=== PATIENT | male | born 1985 | race Two or more races ===

== ENCOUNTER 2020-07-19 19:21 | Inpatient (IN) | payer OTHER ==
[~2020-07-19] VITALS: Ht 177.8 cm; Wt 75.3 kg
[~2020-07-19 19:21] MED LIST: ANTIHISTAMINE; Bactrim Ds Tab1 EACH PO; CEPH250SUA PO; CEPH500 PO; CHLO25 PO; DIAZ5; FAMO20 PO; FAMO40 PO; FEXO60; HYDACE5 PO; HYDACE7.5L PO; LORA10ER; NAPR550 PO; PANT40 PO; PROCODE120 PO; PROM25 PO; RXNAPNA550 PO; SUCR1 PO; SULTRIDS PO; TOBDEXOPSU OS; [UNRECOGNIZED DRUG - OTHER]
[2020-07-19 20:39] LABS: BASOPHILS ABSOLUTE AUTO 0.03 K/mm3 (0.00-0.23); BASOPHILS PERCENT AUTO 1 % (0-2); EOSINOPHILS ABSOLUTE AUTO 0.05 K/mm3 (0.00-0.68); EOSINOPHILS PERCENT AUTO 1 % (0-6); Hematocrit 43.2 % (37.0-53.0); Hemoglobin 14.2 g/dL (13.5-17.5); IMMATURE GRAN ABSOLUTE AUTO 0.01 K/mm3 (0.00-0.10); IMMATURE GRAN PERCENT AUTO 0 % (0-1); LYMPHOCYTES ABSOLUTE AUTO 1.79 K/mm3 (0.84-5.20); LYMPHOCYTES PERCENT AUTO 35 % (21-46); MONOCYTES ABSOLUTE AUTO 0.49 K/mm3 (0.16-1.47); MONOCYTES PERCENT AUTO 10 % (4-13); Mean Corpuscular HGB Conc 32.9 g/dL (31.5-36.5); Mean Corpuscular Volume 88 fL (80-100); Mean Platelet Volume 9.9 fL (9.1-12.4); NEUTROPHILS ABSOLUTE AUTO 2.77 K/mm3 (1.96-9.15); NEUTROPHILS PERCENT AUTO 54 % (41-73); Platelet Count 333 K/mm3 (150-400); RDW Coefficient Variation 12.6 % (11.7-14.2); RDW Standard Deviation 41.1 fL (35.1-46.3); White Blood Cell Count 5.14 K/mm3 (4.00-11.30)
[2020-07-19 20:58] LABS: Alanine Aminotransfer (ALT/SGP 17 U/L (12-78); Albumin, Blood 3.5 g/dL (3.4-5.0); Albumin/Globulin Ratio 1.1 (0.8-1.8); Alk Phos 74 U/L (50-136); Anion Gap 8 mmol/L (6-16); Aspartate Aminotrans (AST/SGOT 16 U/L (12-37); Bilirubin, Total 0.5 mg/dL (0.1-1.0); Blood Urea Nitrogen 19 mg/dL (8-24); Bun/Creatinine Ratio 21.6 (12.0-20.0); CO2, Blood 26 mmol/L (21-32); Calcium, Blood 8.9 mg/dL (8.5-10.1); Chloride, Blood 104 mmol/L (98-108); Creatinine, Blood 0.88 mg/dL (0.60-1.20); Globulin, Blood 3.3 g/dL (2.2-4.0); Glomerular Filtration Rate >60 (60-); Glucose, Blood 116 mg/dL (70-99); Potassium, Blood 3.7 mmol/L (3.5-5.5); Sodium, Blood 138 mmol/L (136-145); Total Protein, Blood 6.8 g/dL (6.4-8.2)
[2020-07-19 23:37] LABS: Influenza A, PCR Negative (NEGATIVE); Influenza B, PCR Negative (NEGATIVE); Resp Syncytial Virus, PCR Negative (NEGATIVE); SARS-Cov-2 (COVID-19) PCR, MMC Negative (NEGATIVE)
--- NOTE | 2020-07-20 08:39 | NUR ---
SUMMARY ADMIT TONIGHT PENDING I/D RLE. P[AIN MEDS EFFECTIVE. IV FLUID INFUSING.
[2020-07-20] MEDS ORDERED: BACTRIM DS TAB1 EAC2 PO (11:59)
[2020-07-20] MEDS ORDERED: HYDR1TAB94 PO (12:02)
[2020-07-20] MEDS ORDERED: ASPIR 8181 M1 PO (12:12)
--- NOTE | 2020-07-20 15:40 | NUR ---
DISCHARGE - LEFT THE FACILITY W/O NOTICE CAME TO PT ROOM AT 1330 TO DISCUSS DISCHARGE INSTRUCTION. ADVISE PT TO FOLLOW UP WITH DR. DIAZ THIS WEEK PER DR. VIRGEN. I MENTIONED THAT DR. DIAZ AND DR. VIRGEN SHARE THE SAME OFFICE. NOTIFIED TO TAKE ASA 81 ONCE DAILY FOR 2 WEEKS TO PREVENT BLOOD CLOT. HAND CARRY PRESCRIPTION WAS GIVEN TO PATIENT UPON DISCHARGE FOR NARCOTICS AND BACTRIM. ADVISE PT NOT TO DRIVE MACHINERY WHEN TAKING NORCO. PT ASVISED NO DRIVING UNTIL CLEARED BY DOCTOR PARAM/ ONLY. I MENTIONED THAT OTHER PROVIDER CANNOT RELEASED HIM TO RETURN TO DRIVING UNLESS SEEN AND EVALUATED FOR RELEASE FROM /. ALSO ADVISE PT ON NON WEIGHT BEARING ON RLE. NEW SPLINT PLACED BY DR. VIRGEN THIS MORNING. PT HAD SPOKEN W/ DR. VIRGEN WITH HIS TREATMENT PLAN AND AGREED TO DC TODAY, TAKE ABX AND NORCO HOME AND F/U IN HIS OFFICE, MARYSOL WAS PRESENT AT BEDSIDE. I ALSO ADDRESSED TO CALL DR. DIAZ'S OFFICE OF ANY WORSENING SX, UNRELIEVE PAIN, AND S/SX OF INFECTION. PT SIGNED THE DISCHARGE PAPER WORK. PT WAS CONCERN ABOUT CRUTCHES, REQUESTING FOR SCRIPT. I ADVISE PT TO GIVE ME A MOMENT TO GET A SCRIPT/VERIFY W/ CHARGE TO GET A SCRIPT FOR CRUTCHES. INSIST TO HAVE A SCRIPT TODAY BECAUSE PT HAS OHP, AND WANTED THE CRUTCHES TO BE COVERED BY INSURANCE VS OUT OF POCKET. I SPOKE W/ X RAY TECHNOLOGIST STUART, CONSULT FOR ADVISE AND OPTION THAT PT MAY HAVE BUT WHEN I CAME BACK IN THE ROOM, PT WAS GONE. PT TOOK THE WALKER FROM THE ROOM AND HIS BELONGINGS. I ATTEMPTED TO CALL THE PATIENT TWICE, AND LEFT A VOICEMAIL TO CALL BACK. I ADDRESS THE ISSUE TO MY CHARGE NURSE, STUART AND NURSING FOOD MOBILE DRIVER WAS NOTIFIED.
== END 2020-07-20 13:50 | disposition home or self-care (01) | DRG 563 ==
LOC: ER 19:21 → SURS 20:56
PROVIDERS: Emergency Medicine; ADMIT Orthopaedic Surgery
DX: S82.401A Unspecified fracture of shaft of right fibula, initial encounter for closed fracture (principal); Z20.828 Contact with and (suspected) exposure to other viral communicable diseases; W20.8XXA Other cause of strike by thrown, projected or falling object, initial encounter; Y92.9 Unspecified place or not applicable
CPT/HCPCS: 0241U; 29515; 36415; 73590; 80053; 85025; 96365-59; 96375-59; 99284-25; A9270-GY; J0690; J1170; J7120

== ENCOUNTER 2021-09-06 20:15 | Emergency (ER) | payer OTHER ==
[~2021-09-06] VITALS: Ht 175.3 cm; Wt 74.8 kg
[~2021-09-06 20:15] MED LIST changes: +ASPIR 8181 M1 PO; +BACTRIM DS TAB1 EAC2 PO; +HYDR1TAB94 PO
[2021-09-06] MEDS ORDERED: Bactrim Ds Tab1 EACH PO (22:30)
[2021-09-06] MEDS ORDERED: Keflex500 MG PO (22:30)
== END 2021-09-06 22:40 | disposition home or self-care (01) ==
LOC: ER 20:15
DX: L02.413 Cutaneous abscess of right upper limb (principal); Z88.0 Allergy status to penicillin; F17.200 Nicotine dependence, unspecified, uncomplicated
CPT/HCPCS: 10061; 96372; 99283; A9270; J1885

== ENCOUNTER 2024-11-02 23:33 | Observation (INO) | payer OTHER ==
[~2024-11-02] VITALS: Ht 177.8 cm; Wt 72.6 kg
[~2024-11-02 23:33] MED LIST changes: +Keflex500 MG PO
[2024-11-03 00:10] LABS: BASOPHILS ABSOLUTE AUTO 0.03 K/mm3 (0.00-0.23); BASOPHILS PERCENT AUTO 1 % (0-2); EOSINOPHILS ABSOLUTE AUTO 0.06 K/mm3 (0.00-0.68); EOSINOPHILS PERCENT AUTO 1 % (0-6); Hematocrit 39.8 % (37.0-53.0); Hemoglobin 13.7 g/dL (13.5-17.5); IMMATURE GRAN ABSOLUTE AUTO 0.03 K/mm3 (0.00-0.10); IMMATURE GRAN PERCENT AUTO 1 % (0-1); LYMPHOCYTES ABSOLUTE AUTO 1.83 K/mm3 (0.84-5.20); LYMPHOCYTES PERCENT AUTO 42 % (21-46); MONOCYTES ABSOLUTE AUTO 0.51 K/mm3 (0.16-1.47); MONOCYTES PERCENT AUTO 12 % (4-13); Mean Corpuscular HGB 29.8 pg (26.0-34.0); Mean Corpuscular HGB Conc 34.4 g/dL (31.5-36.5); Mean Corpuscular Volume 87 fL (80-100); Mean Platelet Volume 11.1 fL (9.1-12.4); NEUTROPHILS ABSOLUTE AUTO 1.92 K/mm3 (1.96-9.15); NEUTROPHILS PERCENT AUTO 44 % (41-73); Platelet Count 204 K/mm3 (150-400); RDW Coefficient Variation 12.7 % (11.7-14.2); RDW Standard Deviation 39.9 fL (35.1-46.3); White Blood Cell Count 4.38 K/mm3 (4.00-11.30)
[2024-11-03] MEDS ORDERED: ACTIVATED CHARCOAL/SORBITOL 25 GM/120 ML BTL PO ONE (00:20)
[2024-11-03 00:22] LABS: Alanine Aminotransfer (ALT/SGP 44 U/L (12-78); Albumin, Blood 3.9 g/dL (3.4-5.0); Albumin/Globulin Ratio 1.3 (0.8-1.8); Alk Phos 60 U/L (50-136); Anion Gap 8 mmol/L (3-11); Aspartate Aminotrans (AST/SGOT 36 U/L (12-37); Bilirubin, Total 0.4 mg/dL (0.1-1.0); Blood Urea Nitrogen 17 mg/dL (8-24); Bun/Creatinine Ratio 20.8 (12.0-20.0); CO2, Blood 29 mmol/L (21-32); Calcium, Blood 8.6 mg/dL (8.5-10.1); Chloride, Blood 104 mmol/L (98-108); Creatinine, Blood 0.82 mg/dL (0.60-1.20); Ethanol (Alcohol), Blood, Med <3 mg/dL; Globulin, Blood 3.1 g/dL (2.2-4.0); Glomerular Filtration Rate 115 (60-); Glucose, Blood 90 mg/dL (70-99); Potassium, Blood 4.1 mmol/L (3.5-5.5); Sodium, Blood 137 mmol/L (136-145)
[2024-11-03] MEDS ORDERED: Naloxone HCl 0.4MG / ML 1ML Vial IV ONE (00:45)
[2024-11-03] MEDS ORDERED: Ondansetron 4 MG TAB PO PRN (01:55)
[2024-11-03] MEDS ORDERED: Naloxone HCl 0.4MG / ML 1ML Vial IV PRN (01:55)
[2024-11-03] MEDS ORDERED: Acetaminophen 325 MG TABLET PO PRN (01:55)
[2024-11-03] MEDS ORDERED: Lactated Ringer's 1,000 ML IV ONE (02:00)
[2024-11-03] MEDS ORDERED: FLU VACC TS2024-25(6MOS UP)/PF 45 MCG/0.5 ML SYRINGE IM ONE (02:00)
[2024-11-03 03:32] LABS: U Amphetamine Screen DETECTED; U Barbituate Screen Not Detected; U Benzodiazapine Screen Not Detected; U Buprenorphine Screen Not Detected; U Cannabinoids Screen Not Detected; U Cocaine Screen Not Detected; U Methadone Screen Not Detected; U Methamphetamine Screen DETECTED; U Opiates Screen Not Detected; U Oxycodone Screen Not Detected; U Phencyclidine Screen Not Detected
[2024-11-03 05:09] LABS: BASOPHILS ABSOLUTE AUTO 0.02 K/mm3 (0.00-0.23); BASOPHILS PERCENT AUTO 0 % (0-2); EOSINOPHILS ABSOLUTE AUTO 0.02 K/mm3 (0.00-0.68); EOSINOPHILS PERCENT AUTO 0 % (0-6); Hematocrit 36.8 % (37.0-53.0); Hemoglobin 12.7 g/dL (13.5-17.5); IMMATURE GRAN ABSOLUTE AUTO 0.01 K/mm3 (0.00-0.10); IMMATURE GRAN PERCENT AUTO 0 % (0-1); LYMPHOCYTES ABSOLUTE AUTO 1.95 K/mm3 (0.84-5.20); LYMPHOCYTES PERCENT AUTO 32 % (21-46); MONOCYTES ABSOLUTE AUTO 0.45 K/mm3 (0.16-1.47); MONOCYTES PERCENT AUTO 7 % (4-13); Mean Corpuscular HGB 30.4 pg (26.0-34.0); Mean Corpuscular HGB Conc 34.5 g/dL (31.5-36.5); Mean Corpuscular Volume 88 fL (80-100); Mean Platelet Volume 10.4 fL (9.1-12.4); NEUTROPHILS ABSOLUTE AUTO 3.74 K/mm3 (1.96-9.15); NEUTROPHILS PERCENT AUTO 60 % (41-73); Platelet Count 243 K/mm3 (150-400); RDW Standard Deviation 41.7 fL (35.1-46.3); Red Blood Cell Count 4.18 M/mm3 (4.30-5.90); White Blood Cell Count 6.19 K/mm3 (4.00-11.30)
[2024-11-03 05:36] LABS: Albumin, Blood 3.4 g/dL (3.4-5.0); Albumin/Globulin Ratio 1.3 (0.8-1.8); Bilirubin, Total 0.5 mg/dL (0.1-1.0); Bun/Creatinine Ratio 17.8 (12.0-20.0); Calcium, Blood 8.3 mg/dL (8.5-10.1); Creatinine, Blood 0.73 mg/dL (0.60-1.20); Globulin, Blood 2.7 g/dL (2.2-4.0); Magnesium, Blood 2.2 mg/dL (1.6-2.4); Potassium, Blood 4.2 mmol/L (3.5-5.5); Total Protein, Blood 6.1 g/dL (6.4-8.2)
[2024-11-03 06:00] VITALS: BP 103/74
[2024-11-03] MEDS ORDERED: Enoxaparin 40 MG/0.4 ML SYR SC SCH (09:00)
== END 2024-11-03 23:00 | disposition home or self-care (01) ==
LOC: ER 23:33 → ERHOLD 23:34
PROVIDERS: Student in an Organized Health Care Education/Training Program; ADMIT Student in an Organized Health Care Education/Training Program
DX: T40.412A Poisoning by fentanyl or fentanyl analogs, intentional self-harm, initial encounter (principal); K21.9 Gastro-esophageal reflux disease without esophagitis; F17.210 Nicotine dependence, cigarettes, uncomplicated; F19.10 Other psychoactive substance abuse, uncomplicated; Z88.0 Allergy status to penicillin; Z88.1 Allergy status to other antibiotic agents
CPT/HCPCS: 71045; 80053; 80320; 83735; 85025; 93005; 93010; 96360; 99285-25; G0378; J2310; J7120

== ENCOUNTER 2025-06-29 06:38 | Emergency (ER) | payer OTHER ==
[~2025-06-29] VITALS: Ht 177.8 cm; Wt 75.8 kg
[2025-06-29 06:43] VITALS: BP 130/90
[2025-06-29] MEDS ORDERED: RX Prepack 2 Sprays Naloxone HCL 4 MG/SPRAY UD ONE (06:50)
== END 2025-06-29 07:03 | disposition home or self-care (01) ==
LOC: ER 06:38
DX: T40.411A Poisoning by fentanyl or fentanyl analogs, accidental (unintentional), initial encounter (principal); K21.9 Gastro-esophageal reflux disease without esophagitis; F17.200 Nicotine dependence, unspecified, uncomplicated; Z88.0 Allergy status to penicillin
CPT/HCPCS: 99282; A9270

== ENCOUNTER 2025-07-12 17:48 | Emergency (ER) | payer OTHER ==
[~2025-07-12] VITALS: Ht 175.3 cm; Wt 72.6 kg
[2025-07-12 20:09] VITALS: BP 111/86
== END 2025-07-12 20:11 ==
LOC: ER 17:48
DX: Z03.821 Encounter for observation for suspected ingested foreign body ruled out (principal); Z88.0 Allergy status to penicillin; Z88.1 Allergy status to other antibiotic agents; Z88.8 Allergy status to other drugs, medicaments and biological substances; Z79.899 Other long term (current) drug therapy; K21.9 Gastro-esophageal reflux disease without esophagitis; F17.200 Nicotine dependence, unspecified, uncomplicated
CPT/HCPCS: 74018; 99285-25

== ENCOUNTER 2025-07-16 05:21 | Emergency (ER) | payer OTHER ==
[~2025-07-16] VITALS: Ht 175.3 cm; Wt 74.8 kg
[2025-07-16 05:33] VITALS: BP 128/91
[2025-07-16] MEDS ORDERED: MAGCIT300 PO (06:18)
== END 2025-07-16 06:30 | disposition home or self-care (01) ==
LOC: ER 05:21
DX: T18.5XXA Foreign body in anus and rectum, initial encounter (principal); F17.210 Nicotine dependence, cigarettes, uncomplicated; Z88.0 Allergy status to penicillin; Z88.8 Allergy status to other drugs, medicaments and biological substances; W44.G9XA Other non-organic objects entering into or through a natural orifice, initial encounter
CPT/HCPCS: 74019; 99284-25